=== PATIENT | female | born 1965 | race Caucasian/White ===

== ENCOUNTER → 2024-08-21 | Day surgery (SDC) | payer OTHER ==
[2024-08-20 09:39] LABS: Absolute Eosinophils 0.2 K/uL (0-0.5); Absolute Lymphocytes (CBC) 1.7 K/uL (0.7-4.9); Absolute Monocytes 0.4 K/uL (0.1-1.3); Absolute Neutrophil 2.9 K/uL (1.8-8.0); Basophils % 0.6 % (0-1.3); Eosinophils % 3.3 % (0-4.4); Hematocrit 44.6 % (36.0-45.0); Hemoglobin 14.9 g/dL (12.0-15.0); Lymphocytes % 32.9 % (15.3-44.8); MCHC 33.4 g/dL (32.0-36.0); MCV 86.7 fL (80-100); MPV 7.6 fL (7.6-11.3); Monocytes % 7.2 % (3.3-12.3); Platelets 251 thou/uL (152-406); RBC Red Blood Cell Count 5.15 M/uL (3.86-4.86); Red Cell Distribution Width 14.3 % (12.1-15.2)
[2024-08-20 10:14] LABS: Anion Gap 7.2 mEq/L (5.0-15.0); Potassium 4.2 mEq/L (3.5-5.1)
[~2024-08-21] MED LIST: EPHEDRINE SULF 50 MG/ML VIAL ONE; LIDOCAINE 1% MPF 5 ML VIAL ONE; propofoL 200 MG/20 ML VIAL IV ONE
[2024-08-21] MEDS: Ringers Lactate 1,000 ML IV ONE (10:30)
[2024-08-21 12:56] VITALS: TEMP 97.3
[2024-08-21 13:35] VITALS: BP 139/75; O2SAT 97
--- NOTE | 2024-08-21 13:38 | EKG ---
Test Date: 2024-08-20 Test Time: 10:24:16 Spearer: JOSE DE JESUS MEASUREMENT RESULTS: Intervals: Rate: 57 ME: 162 QRSD: 82 QT: 444 QTc: 432 [place]: P: 56 ME: 162 QRS: 68 T: 64 INTERPRETIVE STATEMENTS: Sinus bradycardia Otherwise normal ECG No previous ECG available for comparison Electronically Signed On 08-21-24 13:36:22 MASTER PILOT by Butch Steiner
== END ==
LOC: OR 09:55
PROVIDERS: ATTEND Internal Medicine Gastroenterology
PROC: 0DB68ZX Excision of Stomach, Via Natural or Artificial Opening Endoscopic, Diagnostic (ICD-10-PCS; 2024-08-21)
PROC: 0D758ZZ Dilation of Esophagus, Via Natural or Artificial Opening Endoscopic (ICD-10-PCS; 2024-08-21)
PROC: 0DB58ZX Excision of Esophagus, Via Natural or Artificial Opening Endoscopic, Diagnostic (ICD-10-PCS; principal; 2024-08-21 12:18)
DX: K21.9 Gastro-esophageal reflux disease without esophagitis (principal); K30 Functional dyspepsia; R13.10 Dysphagia, unspecified; R13.19 Other dysphagia; R11.2 Nausea with vomiting, unspecified; R14.0 Abdominal distension (gaseous); R14.2 Eructation; K21.00 Gastro-esophageal reflux disease with esophagitis, without bleeding; K22.2 Esophageal obstruction; K44.9 Diaphragmatic hernia without obstruction or gangrene; K29.50 Unspecified chronic gastritis without bleeding
CPT/HCPCS: 93005; 85025; 80048; 36415; 88312; 88305; 43239; 43248; J2704 ×2; J2003; J7120; 88304

== ENCOUNTER 2024-11-15 09:22 | Emergency (ER) | payer OTHER ==
[2024-11-15] MEDS ORDERED: NA CHLORIDE 0.9% 1,000 ML ONE (09:45)
[2024-11-15] MEDS ORDERED: ONDANSETRON 4 MG/2 ML VIAL ONE (09:45)
[2024-11-15 10:17] LABS: Influenza A Ag Negative; Influenza B Ag Negative; SARS-CoV-2 Antigen Rapid Res Negative (Negative)
[2024-11-15] MEDS ORDERED: KETOROLAC 30 MG/ML INJ ONE (10:26)
--- NOTE | 2024-11-15 11:11 | RAD REPORT ---
EXAMINATION: TWO VIEW CHEST XR CLINICAL INDICATION: Female, 59 years old. Cough;Fever TECHNIQUE: 2 view radiographs of the chest were performed. COMPARISON: No prior exam. FINDINGS: The lungs are well inflated and clear. No pneumothorax or sizable effusion. The heart is normal in si ze. Mediastinal contours are unremarkable. IMPRESSION: No acute or significant abnormalities.
--- NOTE | 2024-11-15 11:52 | ER ---
Nurse's Notes [facility] Name: Bonnie Nieto Age: 59 yrs Sex: Female : 1965 Arrival Date: 11/15/2024 Time: : Bed 5 Private MD: Diagnosis: Viral infection, unspecified Presentation: 11/15 09:33 Chief complaint: Patient states: N/V/D, fever and body aches that began yesterday. ss Coronavirus screen: Client denies travel out of the [place] in the last 14 days. Ebola Screen: Patient denies exposure to infectious person. Patient denies travel to an Ebola-affected area in the 21 days before illness onset. Initial Sepsis Screen: Does the patient meet any 2 criteria? No. Patient's initial sepsis screen is negative. Does the patient have a suspected source of infection? No. Patient's initial sepsis screen is negative. Risk Assessment: Do you want to hurt yourself or someone else? Patient reports no desire to harm self or others. Onset of symptoms was November 14, 2024. 09:33 Method Of Arrival: Ambulatory 09:33 Acuity: JEFE 3 ss Historical: - Allergies: 09:35 Macrobid; ss 09:35 Erythromycin; ss 09:35 Morphine; ss - Immunization history:: Client reports receiving the 2nd dose of the Covid vaccine. - Infectious Disease History:: Denies. - Social history:: Smoking status: Patient denies any tobacco usage or history of. Screenin:40 [facility] ED Fall Risk Assessment (Adult) History of falling in the last 3 months, le1 including since admission No falls in past 3 months (0 pts) Confusion or Disorientation No (0 pts) Intoxicated or Sedated No (0 pts) Impaired Gait No (0 pts) Mobility Assist Device Used No (0 pt) Altered Elimination No (0 pt) Score/Fall Risk Level 0 - 2 = Low Risk Oriented to surroundings, Maintained a safe environment, Educated pt \T\ family on fall prevention, incl call for assistance when getting out of bed, Assessed \T\ reinforced patient's understanding of fall precautions, Hourly rounding (assess needs \T\ fall precautionary measures) done, Used ambulatory aids as needed (educated on \T\ assisted with). Abuse screen: Denies threats or abuse. Denies injuries from another. Nutritional screening: No deficits noted. Tuberculosis screening: No symptoms or risk factors identified. Assessment: 09:38 General: Appears in no apparent distress. Behavior is calm, cooperative. Pain: le1 Complains of pain in throat and generalized body aches Pain currently is 5 out of 10 on a pain scale. Quality of pain is described as aching, sore. Neuro: No deficits noted. Cardiovascular: No deficits noted. Respiratory: No deficits noted. GI: Abdomen is round non-distended, Reports nausea, vomiting. : No deficits noted. EENT: Reports pain in throat. Derm: No deficits noted. Musculoskeletal: No deficits noted. Vital Signs: 09:33 BP 135 / 70; Pulse 75; Resp 17; Temp 97.9(O); Pulse Ox 98% on R/A; Weight 104.33 kg; ss Height 5 ft. 3 in. ; Pain 10/10; 11:54 BP 113 / 54; Pulse 55; Resp 16; Temp 97.9(O); Pulse Ox 95% on R/A; Pain 0/10; le1 09:33 Body Mass Index 40.74 (104.33 kg, 160.02 cm) ss 09:33 Pain Scale: Adult ss 11:54 Pain Scale: Adult le1 ED Course: 09:24 Patient arrived in ED. mr 09:25 Aj Sin [facility]-C [facility]. [facility] 09:25 Ree Whiteside MD is Attending Physician. dr5 09:35 Triage completed. ss 09:35 Arm band placed on right wrist. ss 09:38 Keyla Jasmine, RN is Primary Nurse. le1 09:41 Patient has correct armband on for positive identification. Bed in low position. Call le1 light in reach. Side rails up X2. Provided Education on: Informed to use call light if needed.. 09:57 Inserted saline lock: 20 gauge in right forearm, using aseptic technique. Flushed with le1 10 mL NS. 10:29 Chest Pa And Lat (2 Views) XRAY In Process Unspecified. EDMS 11:59 No provider procedures requiring assistance completed. IV discontinued, intact, le1 bleeding controlled, No redness/swelling at site. Pressure dressing applied. Administered Medications: 09:56 Drug: NS 0.9% IV 1000 ml IV at 1000 ml once; to be given as a bolus over 60 minutes le1 Route: IV; Rate: 1000 ml; Site: right forearm; 11:12 Follow up: Response: No adverse reaction; IV Status: Completed infusion; IV Intake: le1 1000ml 09:56 Drug: Ondansetron IVP 4 mg IVP once; over 2 minutes Route: IVP; Site: right forearm; le1 10:24 Follow up: Response: No adverse reaction; Nausea is decreased le1 10:35 Drug: Ketorolac IVP 15 mg IVP once Route: IVP; Site: right forearm; le1 11:11 Follow up: Response: No adverse reaction; Pain is decreased le1 Medication: 12:00 VIS not applicable for this client. le1 Intake: 11:12 IV: 1000ml; Total: 1000ml. le1 Outcome: 11:51 Discharge ordered by MD. dr5 11:59 Discharged to home ambulatory, le1 11:59 Condition: good 11:59 Discharge instructions given to patient, Instructed on discharge instructions, follow up and referral plans. medication usage, Demonstrated understanding of instructions, follow-up care, medications, Prescriptions given X 2, 12:00 Patient left the ED. le1 Signatures: Dispatcher [employer] EDIL Samantha Martinez, Reg Reg mr Rissa Partida, RN RN Keyla Thomson RN RN le1 Aj Sin, SEWING MACHINE OPERATOR PAPER BAGS-C SEWING MACHINE OPERATOR PAPER BAGS-Cdr5
--- NOTE | 2024-11-15 11:52 | EDPHYS ---
Physician Documentation [facility] Name: Bonnie Nieto Age: 59 yrs Sex: Female : 1965 Arrival Date: 11/15/2024 Time: 09:22 Bed 5 Private MD: ED Physician Ree Whiteside HPI: 11/15 09:49 This 59 yrs old Female presents to ER via Ambulatory with complaints of dr5 Fever, Vomiting/Diarrhea. 09:50 Patient is a 59-year-old female with history of autoimmune disease, fibromyalgia, RA dr5 coming in with body aches and fever that started yesterday morning. Patient reports she has had a couple episode of vomiting yesterday and is currently feeling nauseous.. Historical: - Allergies: 09:35 Macrobid; ss 09:35 Erythromycin; ss 09:35 Morphine; ss - Immunization history:: Client reports receiving the 2nd dose of the Covid vaccine. - Infectious Disease History:: Denies. - Social history:: Smoking status: Patient denies any tobacco usage or history of. ROS: 09:50 Constitutional: as per hpi dr5 Exam: 09:50 Constitutional: This is a well developed, well nourished patient who is awake, alert, dr5 and in no acute distress. Head/Face: Normocephalic, atraumatic. ENT: Nares patent. No nasal discharge, no septal abnormalities noted. Tympanic membranes are normal and external auditory canals are clear. Oropharynx with no redness, swelling, or masses, exudates, or evidence of obstruction, uvula midline. Mucous membranes moist. Neck: Trachea midline, no thyromegaly or masses palpated, and no cervical lymphadenopathy. Supple, full range of motion without nuchal rigidity, or vertebral point tenderness. No Meningismus. Chest/axilla: Normal chest wall appearance and motion. Nontender with no deformity. No lesions are appreciated. Cardiovascular: Regular rate and rhythm with a normal S1 and S2. Normal PMI, no JVD. No pulse deficits. Respiratory: Lungs have equal breath sounds bilaterally, clear to auscultation. No rales, rhonchi or wheezes noted. No increased work of breathing, no retractions or nasal flaring. Back: No spinal tenderness. No costovertebral tenderness. Full range of motion. MS/ Extremity: Pulses equal, no cyanosis. Neurovascular intact. Full, normal range of motion. Neuro: Awake and alert, GCS 15, oriented to person, place, time, and situation. Cranial nerves II-XII grossly intact. Motor strength 5/5 in all extremities. Sensory grossly intact. Cerebellar exam normal. Normal gait. 09:50 ENT: External ear(s): are unremarkable, Ear canal(s): are normal, no acute changes, TM's: are normal, Nose: is normal, Mouth: is normal, Posterior pharynx: erythema, that is mild, Vital Signs: 09:33 BP 135 / 70; Pulse 75; Resp 17; Temp 97.9(O); Pulse Ox 98% on R/A; Weight 104.33 kg; ss Height 5 ft. 3 in. ; Pain 10/10; 11:54 BP 113 / 54; Pulse 55; Resp 16; Temp 97.9(O); Pulse Ox 95% on R/A; Pain 0/10; le1 09:33 Body Mass Index 40.74 (104.33 kg, 160.02 cm) ss 09:33 Pain Scale: Adult ss 11:54 Pain Scale: Adult le1 MDM: 09:37 Medical Screening Exam initiated dr5 13:14 Differential diagnosis: viral Infection, bacterial infection, URI, Strep, Covid, Flu, dr5 Viral Infection. Data reviewed: vital signs, nurses notes, lab test result(s), Flu: negative. I considered the following discharge prescriptions or medication management in the emergency department Medications were administered in the Emergency Department. See MAR. Care significantly affected by the following Social Determinants of Health: Poor access to healthcare and/or lack of insurance, Poor access to transportation, Problems related to employment. Counseling: I had a detailed discussion with the patient and/or guardian regarding the historical points, exam findings, and any diagnostic results supporting the discharge/admit diagnosis, the presence of at least one elevated blood pressure reading (>120/80) during this emergency department visit, radiology results, the need for outpatient follow up, for definitive care, a family practitioner, to return to the emergency department if symptoms worsen or persist or if there are any questions or concerns that arise at home. ED course: Patient reports she is feeling much better after fluids and Zofran. Will give patient Zofran to take home. Recommended increased hydration. Discussed possible steroid use with patient reports that she would not prefer to take them at this time. Alternate Tylenol Motrin as needed for fever. Follow-up with primary care doctor this week for further management. Patient denies any symptoms on discharge initially much better.. 11/15 09:38 Order name: COVID-19 Ag + Flu A+B Ag; Complete Time: 10:19 dr5 11/15 09:38 Order name: Group A Streptococcus Rapid; Complete Time: 10:17 dr5 11/15 10:13 Order name: Throat Culture EDMS 11/15 09:38 Order name: Chest Pa And Lat (2 Views) XRAY; Complete Time: 11:12 dr5 Administered Medications: 09:56 Drug: NS 0.9% IV 1000 ml IV at 1000 ml once; to be given as a bolus over 60 minutes le1 Route: IV; Rate: 1000 ml; Site: right forearm; 11:12 Follow up: Response: No adverse reaction; IV Status: Completed infusion; IV Intake: le1 1000ml 09:56 Drug: Ondansetron IVP 4 mg IVP once; over 2 minutes Route: IVP; Site: right forearm; le1 10:24 Follow up: Response: No adverse reaction; Nausea is decreased le1 10:35 Drug: Ketorolac IVP 15 mg IVP once Route: IVP; Site: right forearm; le1 11:11 Follow up: Response: No adverse reaction; Pain is decreased le1 Disposition Summary: 11/15/24 11:51 Discharge Ordered Notes: Location: Home dr5 Condition: Stable dr5 Diagnosis - Viral infection, unspecified dr5 Followup: dr5 - With: Emergency Department - When: As needed - Reason: Worsening of condition Followup: dr5 - With: Private Physician - When: 1 - 2 days - Reason: Recheck today's complaints, Continuance of care, Re-evaluation by your physician Discharge Instructions: - Discharge Summary Sheet dr5 - Fungal Nail Infection dr5 - Viral Illness, Adult dr5 Forms: - Medication Reconciliation Form dr5 - Patient Portal Instructions dr5 - Leadership Thank You Letter dr5 Prescriptions: - Clotrimazole 1 % Topical Cream - Apply to affected area 1 application TOPICAL route every 12 hours; 15 gram; dr5 Refills: 0, Product Selection Permitted - Zofran 4 mg Oral Tablet - take 1 tablet ORAL route every 12 hours As needed; 20 tablet; Refills: 0, dr5 Product Selection Permitted Signatures: Dispatcher [employer] EDOR Rissa Partida, RN RN ss Keyla Jasmine RN RN le1 Aj Sin, LABORATORY INSPECTOR-C LABORATORY INSPECTOR-Cdr5 Corrections: (The following items were deleted from the chart) 09:38 COVID-19 Ag + Flu A+B Ag+I.LAB.BRZ ordered. EDMS EDMS 09:38 Group A Streptococcus Rapid Sc+I.LAB.BRZ ordered. EDMS EDMS 09:38 Chest Pa And Lat (2 Views)+RAD.RAD.BRZ ordered. EDMS EDMS
[2024-11-15 12:14] VITALS: TEMP 97.9
[2024-11-15 12:19] VITALS: BP 113/54; O2SAT 95
--- NOTE | 2024-11-15 18:39 | P.HP ---
Certification for Inpatient Patient admitted to: Inpatient With expected LOS: >2 Midnights Practitioner: I am a practitioner with admitting privileges, knowledge of patient current condition, hospital course, and medical plan of care. Services: Services provided to patient in accordance with Admission requirements found in Title 42 Section 412.3 of the Code of Federal Regulations Patient History Date of Service: 11/15/24 Reason for admission: Acute Gastroenteritis History of Present Illness: 59 yrs old Female presents to ER via Ambulatory with complaints of dr5 Fever, Vomiting/Diarrhea. 09:50 Patient is a 59-year-old female with history of autoimmune disease, fibromyalgia, RA dr5 coming in with body aches and fever that started yesterday morning. Patient reports she has had a couple episode of vomiting yesterday and is currently feeling nauseous.. Historical: - Allergies: :35 Allergies codeine Allergy (Verified 08/20/24 09:10) Itching erythromycin base Allergy (Verified 08/20/24 09:10) Chest pain/shortness of breath morphine Allergy (Verified 08/20/24 09:10) Rash/Hives nitrofurantoin [From Macrobid] Allergy (Verified 08/20/24 09:10) Unknown Home medications list reviewed: Yes Home Medications: Albuterol Inhaler [Ventolin Inhaler] 2 puff IH Q6H PRN 08/20/24 Antiage Patch 1 patch TOP DAILY 08/20/24 Aspirin 325 mg PO DAILY 08/20/24 Bempedoic Acid [Nexletol] 180 mg PO DAILY 08/20/24 Celecoxib [Celebrex] 100 mg PO BID 08/20/24 Cholecalciferol (Vitamin D3) [Vitamin D3] 1,000 unit PO DAILY 08/20/24 Doxycycline Monohydrate 100 mg PO BID 08/20/24 Ezetimibe [Zetia] 10 mg PO DAILY 08/20/24 Fluoxetine HCl [Prozac] 40 mg PO DAILY 08/20/24 Glutathione Patch 1 patch TOP DAILY 08/20/24 Levothyroxine Sodium 100 mcg PO DAILY 08/20/24 [place]-3 Fatty Acids [[place]-3] 1,000 mg PO DAILY 08/20/24 Pregabalin [Lyrica] 300 mg PO BID 08/20/24 Saccharomyces Boulardii [Florastor] 250 mg PO DAILY 08/20/24 Umeclidinium Brm/Vilanterol Tr [Anoro Ellipta 62.5-25 Mcg INH] 1 each IH DAILY 08/20/24 - Past Medical/Surgical History Past Medical History: Reviewed- Non-Contributory Physical Examination - Vital Signs Temperature: 97.9 F Blood Pressure: 113/54 Pulse: 55 Respirations: 16 Assessment and Plan - Advance Directives Does patient have a Living Will: No Does patient have a Durable POA for Healthcare: No
== END 2024-11-15 12:00 | disposition home or self-care (01) ==
LOC: ER 09:22
DX: B34.9 Viral infection, unspecified (principal); Z11.52 Encounter for screening for COVID-19
CPT/HCPCS: 96361; 87070; 36415; 71046; 96375; 96374; 99284; 87428; J2405; J7030

== ENCOUNTER 2025-04-09 13:26 | Emergency (ER) | payer OTHER ==
[2025-04-09] MEDS ORDERED: KETOROLAC 30 MG/ML INJ ONE (14:01)
[2025-04-09] MEDS ORDERED: ACETAMINOPHEN 500 MG TAB ONE (14:01)
--- NOTE | 2025-04-09 14:53 | RAD REPORT ---
Exam:Wrist Right 3 View HISTORY: Right wrist pain FINDINGS: 2.5 mm bony density along the dorsal aspect of the wrist suspicious for an acute avulsion fracture fr om the triquetrum No dislocation
--- NOTE | 2025-04-09 14:55 | RAD REPORT ---
Exam:Hand Right 3 View HISTORY: Right hand pain FINDINGS: 2.5 mm bony density dorsal aspect of the wrist better seen on the wrist x-rays suspicious for an acut e avulsion fracture from the triquetrum. No dislocation Cortical irregularity involving the fifth middle phalanx probably not significant. However, clinical correlation is needed to see if the patient has point tenderness in this region to indicate a subtle fracture.
--- NOTE | 2025-04-09 16:04 | ER ---
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 Fell onto R knee ll1 again. L foot hurting from this fall. R wrist/hand hurting also now. Coronavirus screen: Client denies travel out of the [place] in the last 14 days. At this time, the client does not indicate any symptoms associated with coronavirus-19. Ebola Screen: Patient denies travel to an Ebola-affected area in the 21 days before illness onset. Initial Sepsis Screen: Does the patient meet any 2 criteria? No. Patient's initial sepsis screen is negative. Does the patient have a suspected source of infection? No. Patient's initial sepsis screen is negative. Risk Assessment: Do you want to hurt yourself or someone else? Patient reports no desire to harm self or others. Onset of symptoms was April 09, 2025. 13:40 Method Of Arrival: Ambulatory ll1 13:40 Acuity: JEFE 3 ll1 Triage Assessment: 13:40 General: Appears distressed, uncomfortable, Behavior is calm, cooperative, appropriate ll1 for age. Pain: Complains of pain in R knee Quality of pain is described as aching. Musculoskeletal: Reports pain in left hand and right leg. Injury Description: Bruise. 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 - Infectious Disease History:: Denies. - Social history:: Smoking status: Patient denies any tobacco usage or history of. Screenin:55 [facility] ED Fall Risk Assessment (Adult) History of falling in the last 3 months, me1 including since admission Yes- fall prone (multiple falls) (3 pts) Confusion or Disorientation No (0 pts) Intoxicated or Sedated No (0 pts) Impaired Gait Yes (1 pt) Mobility Assist Device Used Yes (1 pt) Altered Elimination No (0 pt) Score/Fall Risk Level 0 - 2 = Low Risk Maintained a safe environment, Provided non-skid footwear, Hourly rounding (assess needs \T\ fall precautionary measures) done. Abuse screen: Denies threats or abuse. Nutritional screening: No deficits noted. Tuberculosis screening: No symptoms or risk factors identified. 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 Fell onto R knee again. L foot hurting from this fall. R wrist/hand hurting also now. Pain: Complains of pain in left foot and right leg and left hand Pain does not radiate. Pain currently is 10 out of 10 on a pain scale. Quality of pain is described as sharp, Pain began suddenly, Is continuous. Neuro: Level of Consciousness is awake, alert, obeys commands, Oriented to person, place, time, situation, Appropriate for age. Cardiovascular: Patient's skin is warm and dry. Respiratory: Airway is patent Respiratory effort is even, unlabored, Respiratory pattern is regular, symmetrical. GI: No signs and/or symptoms were reported involving the gastrointestinal system. : No signs and/or symptoms were reported regarding the genitourinary system. EENT: No signs and/or symptoms were reported regarding the EENT system. Derm: Skin is healthy with good turgor, Skin is normal. Musculoskeletal: Reports pain in left foot and right leg and left hand. 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 Fell onto R knee again. L foot hurting from this fall. R wrist/hand hurting also now. Vital Signs: 13:40 BP 133 / 79; Pulse 70; Resp 16; Temp 97.5; Pulse Ox 98% ; Weight 103.42 kg; Height 5 ll1 ft. 4 in. ; Pain 10/10; 14:30 BP 125 / 79; Pulse 62; Resp 15; Pulse Ox 94% ; me1 15:00 BP 131 / 69; Pulse 62; Resp 16; Pulse Ox 93% ; me1 16:00 BP 132 / 76; Pulse 58; Resp 16; Temp 98.2; Pulse Ox 96% ; me1 13:40 Body Mass Index 39.14 (103.42 kg, 162.56 cm) ll1 13:40 Pain Scale: Adult ll1 ED Course: 13:28 Patient arrived in ED. im 13:29 Aj Sin [facility]-C [facility]. [facility] 13:29 Tyson Griffin MD is Attending Physician. dr5 13:42 Triage completed. ll1 13:42 Arm band placed on. ll1 13:54 Beverly Caldwell, MARIBEL is Primary Nurse. me1 13:55 Patient has correct armband on for positive identification. Bed in low position. Call me1 light in reach. Side rails up X2. Provided Education on: POC. Verbalized understanding.. Client placed on continuous cardiac and pulse oximetry monitoring. NIBP monitoring applied. Pulse ox on. NIBP on. 13:55 No provider procedures requiring assistance completed. me1 14:27 Wrist Right 3 View XRAY In Process Unspecified. EDMS 14:27 Hand Right 3 View XRAY In Process Unspecified. EDMS 16:03 Tra Holloway MD is Referral Physician. dr5 16:09 Patient did not have IV access during this emergency room visit. me1 Administered Medications: 14:07 Drug: Acetaminophen PO 1000 mg PO once Route: PO; me1 15:39 Follow up: Response: No adverse reaction me1 14:07 Drug: Ketorolac IM 30 mg IM once Route: IM; Site: right deltoid; me1 15:39 Follow up: Response: No adverse reaction; Pain is decreased me1 Medication: 13:55 VIS not applicable for this client. me1 Outcome: 16:04 Discharge ordered by . dr5 16:09 Discharged to home ambulatory, me1 16:09 Condition: stable 16:09 Discharge instructions given to patient, Instructed on discharge instructions, follow up and referral plans. medication usage, Demonstrated understanding of instructions, follow-up care, medications, Prescriptions given X 2, 16:09 Patient left the ED. 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 Fell onto R me1 knee again. L foot hurting from this fall. R wrist/hand hurting also now. ll1
--- NOTE | 2025-04-09 16:04 | EDPHYS ---
Physician Documentation [facility] Name: Bonnie Nieto Age: 59 yrs Sex: Female : 1965 Arrival Date: 04/09/2025 Time: 13:26 Bed 11 Private MD: ED Physician Tyson Griffin HPI: 04/09 17:20 This 59 yrs old Female presents to ER via Ambulatory with complaints of Fall dr5 Injury. 17:20 Onset: The symptoms/episode began/occurred acutely. Associated injuries: The patient dr5 sustained right wrist, swelling. Patient is a 59-year-old female with history of narcolepsy, fibromyalgia, sjogren's disease, decerkins's disease coming in with trip and fall landing on right wrist. Patient reports that she has fallen multiple times due to she was gripping on the floor too hard. Patient had MRI of right knee today. Patient reports that she feels like something may have popped in her right wrist. 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 - Infectious Disease History:: Denies. - Social history:: Smoking status: Patient denies any tobacco usage or history of. ROS: 17:20 Constitutional: as per hpi dr5 Exam: 17:20 Constitutional: This is a well developed, well nourished patient who is awake, alert, dr5 and in no acute distress. Head/Face: Normocephalic, atraumatic. Eyes: Pupils equal round and reactive to light, extra-ocular motions intact. Lids and lashes normal. Conjunctiva and sclera are non-icteric and not injected. Cornea within normal limits. Periorbital areas with no swelling, redness, or edema. Neck: Trachea midline, no thyromegaly or masses palpated, and no cervical lymphadenopathy. Supple, full range of motion without nuchal rigidity, or vertebral point tenderness. No Meningismus. Chest/axilla: Normal chest wall appearance and motion. Nontender with no deformity. No lesions are appreciated. Cardiovascular: Regular rate and rhythm with a normal S1 and S2. Normal PMI, no JVD. No pulse deficits. Respiratory: Lungs have equal breath sounds bilaterally, clear to auscultation. No rales, rhonchi or wheezes noted. No increased work of breathing, no retractions or nasal flaring. Back: No spinal tenderness. No costovertebral tenderness. Full range of motion. Skin: Warm, dry with normal turgor. Normal color with no rashes, no lesions, and no evidence of cellulitis. Neuro: Awake and alert, GCS 15, oriented to person, place, time, and situation. Cranial nerves II-XII grossly intact. Motor strength 5/5 in all extremities. Sensory grossly intact. Cerebellar exam normal. Normal gait. 17:20 Musculoskeletal/extremity: Extremities: noted in the right wrist: pain, swelling, tenderness, ROM: no acute changes, intact in all extremities, Circulation is intact in all extremities. Sensation intact. Vital Signs: 13:40 BP 133 / 79; Pulse 70; Resp 16; Temp 97.5; Pulse Ox 98% ; Weight 103.42 kg; Height 5 ll1 ft. 4 in. ; Pain 10/10; 14:30 BP 125 / 79; Pulse 62; Resp 15; Pulse Ox 94% ; me1 15:00 BP 131 / 69; Pulse 62; Resp 16; Pulse Ox 93% ; me1 16:00 BP 132 / 76; Pulse 58; Resp 16; Temp 98.2; Pulse Ox 96% ; me1 13:40 Body Mass Index 39.14 (103.42 kg, 162.56 cm) ll1 13:40 Pain Scale: Adult ll1 Procedures: 17:20 Splinting: Splint applied to right wrist using wrist splint, applied by nurse. Examined dr5 by me, post splint application: neurovascular intact, 2+ distal pulses palpable, brisk capillary refill noted, Patient tolerated well. MDM: 13:29 Medical Screening Exam initiated dr5 17:20 Differential diagnosis: abrasion, contusion, fracture, sprain, strain. Data reviewed: dr5 vital signs, nurses notes, radiologic studies, plain films. Consideration of Admission/Observation Escalation of care including admission/observation considered. Admission versus question considered if patient found to have open fracture. I considered the following discharge prescriptions or medication management in the emergency department I discussed and recommended Over The Counter medications, Medications were administered in the Emergency Department. See MAR. Care significantly affected by the following chronic conditions: Narcolepsy, Sjogren's Disease, Decerkin's Disease, Fibromyalgia. Care significantly affected by the following Social Determinants of Health: Poor access to healthcare and/or lack of insurance, Poor access to transportation, Problems related to employment. Counseling: I had a detailed discussion with the patient and/or guardian regarding the historical points, exam findings, and any diagnostic results supporting the discharge/admit diagnosis, the presence of at least one elevated blood pressure reading (>120/80) during this emergency department visit, radiology results, the need for outpatient follow up, for definitive care, a orthopedic surgeon, to return to the emergency department if symptoms worsen or persist or if there are any questions or concerns that arise at home. Medication response: Toradol markedly relieved the patient's pain. Response to treatment: the patient's symptoms have markedly improved after treatment. Special discussion: I have referred the patient to see his PCP for further evaluation of high blood pressure. I discussed with the patient/guardian in detail that at this point there is no indication for admission to the hospital. It is understood, however, that if the symptoms persist or worsen the patient needs to return immediately for re-evaluation. Based on the history and exam findings, there is no indication for further emergent testing or inpatient evaluation. I discussed with the patient/guardian the need to see the orthopedic surgeon for further evaluation of the symptoms. ED course: I made CD for patient that included x-ray as well as MRI that was completed today. I printed out report for patient to take with her to with Dr. Holloway. X-ray concerning for possible fracture of right wrist. Patient placed in volar wrist splint and will have her follow-up with Dr. Holloway. All questions answered. Strict ER precautions given. Patient is agreeable to plan.. 04/09 13:56 Order name: Wrist Right 3 View XRAY; Complete Time: 14:57 dr5 04/09 13:56 Order name: Hand Right 3 View XRAY; Complete Time: 14:57 dr5 04/09 15:12 Order name: Volar Wrist Splint; Complete Time: 15:58 dr5 Administered Medications: 14:07 Drug: Acetaminophen PO 1000 mg PO once Route: PO; me1 15:39 Follow up: Response: No adverse reaction me1 14:07 Drug: Ketorolac IM 30 mg IM once Route: IM; Site: right deltoid; me1 15:39 Follow up: Response: No adverse reaction; Pain is decreased me1 Disposition Summary: 04/09/25 16:04 Discharge Ordered Notes: Location: Home dr5 Condition: Stable dr5 Diagnosis - Pain in right hand dr5 Followup: dr5 - With: Emergency Department - When: As needed - Reason: Worsening of condition Followup: dr5 - With: Tra Holloway MD - When: 1 - 2 days - Reason: Recheck today's complaints, Continuance of care, Re-evaluation by your physician Discharge Instructions: - Discharge Summary Sheet dr5 - Cast or Splint Care, Adult dr5 - Musculoskeletal Pain dr5 Forms: - Medication Reconciliation Form dr5 - Prescription Opioid Use dr5 - Patient Portal Instructions dr5 - Leadership Thank You Letter dr5 Prescriptions: - Ibuprofen 800 mg Oral Tablet - take 1 tablet ORAL route every 12 hours As needed take with food; 20 tablet; dr5 Refills: 0, Product Selection Permitted - Tramadol 50 mg Oral Tablet - take 1 tablet ORAL route every 8 hours as needed; 12 tablet; Refills: 0, dr5 Product Selection Permitted Addendum: 04/13/2025 14:03 Co-signature as Attending Physician, Tyson Griffin MD I agree with the assessment and c pollack plan of care. Signatures: Dispatcher [employer] Tyson Manzo MD MD cha Lewis, Lynsay RN RN ll1 Beverly Caldwell RN RN me1 Aj Sin, OUTBOUND SALES AGENT-C OUTBOUND SALES AGENT-Cdr5 Corrections: (The following items were deleted from the chart) 04/09 13:57 13:57 Wrist Right 3 View+RAD.RAD.BRZ ordered. EDMS EDMS 13:57 13:57 Hand Right 3 View+RAD.RAD.BRZ ordered. EDMS EDMS
[2025-04-09 17:44] VITALS: BP 132/76; TEMP 98.2; O2SAT 96
== END 2025-04-09 16:09 | disposition home or self-care (01) ==
LOC: ER 13:26
DX: M79.641 Pain in right hand (principal); W01.0XXA Fall on same level from slipping, tripping and stumbling without subsequent striking against object, initial encounter
CPT/HCPCS: 96372; 99284